=== PATIENT | female | born 1995 ===

== ENCOUNTER → 2020-10-29 11:53 | Outpatient (CLI) | payer OTHER, SELFPAY ==
[2020-10-29 12:45] LABS: Add Manual Diff / Slide Review NO; Basophils Absolute Auto 0 /uL (0-100); Basophils Percent Auto 0.3 % (0-2); Eosinophils Absolute Auto 200 /uL (0-450); Hematocrit 36.2 % (36-46); Hemoglobin 11.8 g/dL (12.0-16.0); Lymphocytes Absolute Auto 1700 /uL (1100-4500); Mean Corpuscular HGB Conc 32.6 % (30-36); Mean Corpuscular Hemoglobin 27.3 PG (26-34); Mean Corpuscular Volume 83.8 fL (80-100); Monocytes Absolute Auto 400 /uL (0-900); Neutrophils Absolute Auto 6500 /uL (1500-7000); Neutrophils Percent Auto 73.7 % (50-75); Platelet Count 223 X10^3/uL (150-400); Red Blood Cell Count 4.32 X10^6/uL (4.0-5.2); White Blood Cell Count 8.8 X10^3/uL (4.5-11.0)
[2020-10-29 13:27] LABS: Appearance Urine UA CLEAR; Bilirubin Urine UA NEGATIVE (NEGATIVE); Color Urine UA YELLOW; Glucose Urine UA NEGATIVE (Negative); Ketones Urine UA 1+ (NEGATIVE); Leukocyte Esterase Urine UA NEGATIVE (NEGATIVE); Nitrite Urine UA NEGATIVE (Negative); Occult Blood Urine UA TRACE-LYSED (Negative); Protein Urine UA NEGATIVE (Negative); Specific Gravity Urine UA >=1.030 (1.000-1.035); Urobilinogen Urine UA 0.2 E.U./dL (0.2)
[2020-10-29 13:35] LABS: Hepatitis B Surface Antigen NEGATIVE s/c (NEGATIVE)
[2020-10-29 13:36] LABS: Rubella Antibody IgG 22.3 IU/mL (>15)
[2020-10-29 13:55] LABS: HIV 1 & 2 Ab/Ag 4th Gen Combo NEGATIVE (NEGATIVE); Hep C Virus Ab w/Reflex Quant NEGATIVE s/c (NEGATIVE)
[2020-10-29 14:07] LABS: Urine N gonorrhoeae NOT DETECTED
[2020-10-29 14:30] LABS: Urine Chlamydia NOT DETECTED
[2020-10-30 06:02] LABS: RPR Screen Non Reactive (Non Reactive)
[2020-10-30 15:03] LABS: Varicella IgG Antibody 647 index (Immune >165)
== END ==
PROVIDERS: Obstetrics & Gynecology; PCP Internal Medicine; Referring Provider Obstetrics & Gynecology; Visit Provider Obstetrics & Gynecology
DX: Z34.81 Encounter for supervision of other normal pregnancy, first trimester (principal); Z11.3 Encounter for screening for infections with a predominantly sexual mode of transmission; Z3A.09 9 weeks gestation of pregnancy
CPT/HCPCS: 36415; 80055; 81003; 86787; 86803; 86850; 86900; 86901; 87086; 87389; 87491; 87591

== ENCOUNTER → 2020-11-26 14:43 | Outpatient (CLI) | payer OTHER, SELFPAY ==
[2020-12-02 10:34] LABS: Sequential Screen 1st Trimeste SEE SEPARATE REPORTS
== END ==
PROVIDERS: PCP Internal Medicine; Referring Provider Obstetrics & Gynecology; Visit Provider Obstetrics & Gynecology
DX: Z34.81 Encounter for supervision of other normal pregnancy, first trimester (principal); Z36.0 Encounter for antenatal screening for chromosomal anomalies; Z3A.13 13 weeks gestation of pregnancy
CPT/HCPCS: 36415; 84163; 84702

== ENCOUNTER → 2020-12-27 08:18 | Outpatient (CLI) | payer OTHER, SELFPAY ==
[2020-12-30 10:30] LABS: Miscellaneous to LabCorp SEE SEPARATE REPORTS
== END ==
PROVIDERS: PCP Internal Medicine; Referring Provider Obstetrics & Gynecology; Visit Provider Obstetrics & Gynecology
DX: Z34.02 Encounter for supervision of normal first pregnancy, second trimester (principal); Z36.0 Encounter for antenatal screening for chromosomal anomalies; Z3A.18 18 weeks gestation of pregnancy
CPT/HCPCS: 36415; 82105; 82677; 86336

== ENCOUNTER → 2021-01-06 13:41 | Outpatient (CLI) | payer OTHER, SELFPAY ==
[2021-01-06 14:56] LABS: Alanine Aminotransferase 11 IU/L (<35); Albumin 3.8 g/dL (3.5-5.0); Alkaline Phosphatase 88 U/L (38-126); Aspartate Aminotransferase 19 IU/L (14-36); Blood Urea Nitrogen 6 mg/dL (7-17); Calcium 9.3 mg/dL (8.4-10.2); Carbon Dioxide 26 mmol/L (22-32); Chloride 104 mmol/L (98-107); Estimated Glomerular Filt Rate > 60.0 mL/min (>60); Glucose 74 mg/dL (70-100); HEMOLYSIS < 15 (0-50); Potassium 3.7 mmol/L (3.4-5.1); Sodium 138 mmol/L (137-145); Total Protein 7.8 g/dL (6.3-8.2); Uric Acid 2.8 mg/dL (2.5-6.2)
[2021-01-06 14:58] LABS: Creatinine Urine Random 97.7 mg/dL; Protein (Total) Urine Random 11 mg/dL (0-12); Protein Creatinine Ratio Urine 0.11 GRAM/24H
[2021-01-06 15:09] LABS: Bilirubin Total < 0.1 mg/dL (0.2-1.3)
[2021-01-06 16:56] LABS: Lactate Dehydrogenase 395 U/L (313-618)
== END ==
PROVIDERS: PCP Internal Medicine; Referring Provider Obstetrics & Gynecology; Visit Provider Obstetrics & Gynecology
DX: Z34.90 Encounter for supervision of normal pregnancy, unspecified, unspecified trimester (principal)
CPT/HCPCS: 36415; 80053; 82570; 83615; 84156; 84550

== ENCOUNTER → 2021-01-11 12:38 | Outpatient (CLI) | payer OTHER, SELFPAY ==
--- NOTE | 2021-01-11 12:39 | DI.US.S_ITS ---
PROCEDURE: US OB >= 14 WEEKS FETUS INDICATIONS: ANATOMY OUTSIDE/PRIOR DATING DATA: Unknown First dating scan (date and location): 10/29/2020 . Estimated date of delivery (ORLIN) from first dating scan: 05/24/2021 . TECHNIQUE: Real-time scanning was performed of the fetus, with image documentation and biometric measurements. Endovaginal scanning: No COMPARISON: [facility], , OB <= 14 WEEKS FETUS, 10/29/2020, 11:48. FINDINGS: General: A single living intrauterine gestation is present. Presentation: Variable. Placenta: Placental position is right posterior , without previa. Amniotic fluid index: 15.6 cm, normal range is 5-24 cm. heart rate: 141 beats per minute. Maternal cervical canal: 3.6 cm long. Normal lower limit is 2.5 cm. biometrics: Biparietal diameter: 20 weeks 6 days Head circumference: 20 weeks 5 days Abdominal circumference: 21 weeks 2 days Femur length: 20 weeks 6 days Estimated gestational age from initial scan: not applicable. Composite gestational age from present scan: 21 weeks Estimated weight and percentile: 21 weeks Measurement variability for biometric dating: +/- 7 days from 14 weeks to 15 weeks 6 days gestation, +/- 10 days from 16 weeks to 21 weeks 6 days gestation, +/- 2 weeks from 22 weeks to 27 weeks 6 days gestation, +/- 3 weeks for 28 weeks gestation or later. weight reference: 4500 g or EFW >90/95% is considered macrosomia or large for gestational age. EFW <10% is small for gestational age. EFW 5% or less is considered intra-uterine growth restriction. Anatomic survey: Neuro: Ventricles are non-dilated at less than 10 mm. Cisterna magna is normal at 3-11 mm. Cerebellum is normal in size and morphology. Nuchal skin fold: Normal at less than 6 mm between 14-21 weeks gestational age. Face: Nose and lips, facial profile are normal. Spine: No evidence for spina bifida. Heart: 4-chambered heart is present, with normal ventricular outflow tracts. Diaphragm: Diaphragm is intact. Stomach: Left-sided stomach is present. Kidneys: No hydronephrosis. Normal is less than 5 mm in 2nd trimester, less than 7 mm in 3rd trimester. Cord: 3-vessel cord has orthotopic insertion. Bladder: Normal in size. Extremities: All 4 extremities identified. IMPRESSION: 1. Single living IUP redemonstrated and interval growth is normal. 2. Normal anatomic survey. Dictated by: Zeus Donohue [facility] Interpreted: Boyd Castellon MD on 01/11/2021 at 16:21 Transcribed by: TORRI on 01/11/2021 at 16:23 Approved by: Boyd Castellon M.D. on 01/13/2021 at 16:32
== END ==
PROVIDERS: PCP Internal Medicine; Referring Provider Obstetrics & Gynecology; Visit Provider Obstetrics & Gynecology
DX: Z34.82 Encounter for supervision of other normal pregnancy, second trimester (principal); Z3A.21 21 weeks gestation of pregnancy
CPT/HCPCS: 76811

== ENCOUNTER → 2021-02-26 08:07 | Outpatient (CLI) | payer OTHER, SELFPAY ==
[2021-02-26 09:26] LABS: Hematocrit 30.7 % (36-46); Hemoglobin 9.9 g/dL (12.0-16.0)
[2021-02-26 09:37] LABS: GTT (PREG) 1 Hour PP 50gm Dose 121 mg/dL (76-139)
== END ==
PROVIDERS: PCP Internal Medicine; Referring Provider Obstetrics & Gynecology; Visit Provider Obstetrics & Gynecology
DX: Z34.82 Encounter for supervision of other normal pregnancy, second trimester (principal); Z3A.25 25 weeks gestation of pregnancy
CPT/HCPCS: 36415; 82950; 85014; 85018

== ENCOUNTER 2021-04-13 17:22 | Observation (INO) | payer OTHER, SELFPAY ==
[2021-04-13] MEDS: NIFEdipine 10 MG CAPSULE PO ×4 (18:31→19:51)
== END 2021-04-13 20:16 | disposition home or self-care (01) ==
PROVIDERS: Admitting Provider Obstetrics & Gynecology; PCP Internal Medicine; Referring Provider Obstetrics & Gynecology; Visit Provider Obstetrics & Gynecology
DX: O47.03 False labor before 37 completed weeks of gestation, third trimester (principal); Z3A.33 33 weeks gestation of pregnancy
CPT/HCPCS: 59025; 59050; G0378; G0379

== ENCOUNTER → 2021-05-05 08:26 | Outpatient (CLI) | payer OTHER, SELFPAY ==
[2021-05-06 17:06] LABS: Strep Grp B PCR NEG for Grp B Strep
== END ==
PROVIDERS: PCP Internal Medicine; Visit Provider Obstetrics & Gynecology
DX: Z34.03 Encounter for supervision of normal first pregnancy, third trimester (principal); Z3A.36 36 weeks gestation of pregnancy
CPT/HCPCS: 87653

== ENCOUNTER 2021-05-21 11:04 | Inpatient (IN) | payer OTHER, SELFPAY ==
[2021-05-21] MEDS: LACTATED RINGERS 1,000 ML 100 ML IV (11:30)
--- NOTE | 2021-05-21 11:40 | P.HPOB_ITS ---
OB HPI Date/Time Date of admission: 05/21/21 Date Patient Seen: 05/21/21 Time Patient Seen: 11:41 History of Present Condition Chief complaint: : 5 Para: 3 Estimated Date of Delivery: 05/30/21 Estimated Gestational Age (weeks): 38w 5d Narrative: Leia Alejandra is a 25 year old at 38 weeks and 5 days gestation in active labor. Contractions began at approximately 4:00 a.m. today and picked up in intensity at about 8:00 a.m.. Denies leaking or bleeding and reports good movement. has been uncomplicated. Desires natural childbirth. OB history Del. Date GA/Weeks Labor Lgth Wt Sex Route Outcome Anesthesia Place Delv Breastfeed Preg Comp Name 04/20/13 9 ? spontaneous aborti on ? 01/15/15 40.5 8 8 lb 0.1 oz Male vaginal live - full term epidural [facility]. 2 mos-plugged duct. other Anand 01/20/16 40 4 7 lb 6 oz Female vaginal andres e - full term none [facility]. 3 mos., went well/back to work none Danni 03/07/19 39 6 8 lb 1 oz Male vaginal live - full term none [facility] 6 mos. induced hyper- Matthais History of Present care: good care, initiated at week # (9), number of visits (10) and pounds weight gain (20) Dating criteria: LMP confirmed by 1st trimester US Ultrasounds: normal mid trimester US Obstetrical complications: none Medical complications: none Preadmission Labs Blood type: B (+) positive -: Antibody screen: negative, GBS status: negative, HBsAG: negative, HIV: negative and RPR/VDLR: negative -: Chlamydia screen: not detected and Gonorrhea screen: not detected -: Rubella: immune and Varicella: immune HCT: 29 HCAB: negative Integrated screen: Normal Sequential screen: Normal Urine: Negative 1 hr GTT: 121 Evaluation Evaluation Baseline heart rate: 140 Variability: Moderate (11-25) monitor accelerations: Present Monitor Decelerations: Early Contraction Frequency (minutes): 5 Status: Category l Cervical dilation (cm): 5 Cervical effacement (%): 80 station: -1 [facility] Medical History Eczema (~2004) History of gestational hypertension Mild asthma (~2010) Sinus infection (~2016) Wears prescription eyeglasses Surgical History History of appendectomy (~2001) Family History Mother Diabetes mellitus Father No problems noted. Grandmother Alzheimers disease Grandfather No problems noted. 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 ) current occupational exposures/hazards: No kunal/yarsani: [employer] special kunal needs: No seatbelt use: always do you feel safe at home: Yes Smoking Status: Never smoker second hand exposure: No alcohol intake: former (Pre-: very occasional. ) substance use type: does not use during the past year weight has: remained stable well-balanced diet: daily or most days (Nibbles/snacks a lot - big meals don't agree with you. ) daily servings fruits/ve-4 caffeine: No Type(s) of exercise: walking and normal ROM and activity (3 kids at home. [facility] frequency: daily Meds Home Medications and Allergies Home Medications Medication Instructions Recorded Confirmed Type cholecalciferol (vitamin D3) 125 125 mcg PO DAILY 10/28/20 04/21/21 History mcg (5,000 unit) capsule prenat.vits,wilfredo,jrt-[id number]-kontg 1 tab PO DAILY 10/28/20 04/21/21 History Double electric breast pump 1 ea TOPICAL .prn #1 ea 03/21/21 04/21/21 Rx Allergies Allergy/AdvReac Type Severity Reaction Status Date / Time pollen extracts Allergy Intermediate Red, itchy Verified 04/21/21 08:06 eyes, congestion. soap AdvReac Intermediate Excema Verified 04/21/21 08:06 breakouts. Review of Systems Review of Systems ROS: Yes All systems reviewed with the patient and are negative except as otherwise documented Exam Vital Signs (past 8 hours): Temperature 36.7? blood pressure 118/68 heart rate 83 Const General: healthy appearing (Uncomfortable with contractions but coping well) HENMT Head: normal to inspection Ears: hearing grossly normal bilaterally Nose: external nose normal Face and sinus: normal facial exam Eyes General: appearance normal, both eyes and all related structures Neck Neck: normal visual inspection Resp Effort & Inspection: normal respiratory effort Auscultation: clear to auscultation bilaterally Cardio Rate: regular rate Rhythm: regular rhythm Heart Sounds: no murmurs GI Other: Gravid External Female Exam: normal external appearance Manual OB Exam: dilated 5, effaced (80) and station -1 Presentation: vertex Estimated Weight (lbs): 8 Back/Spine/Pelvis Back: normal to inspection Skin General: no rashes or lesions noted Extrem General: normal to inspection and no pedal edema Objective Labs Result Diagrams: 05/21/21 11:25 Assessment and Plan Assessment and Plan Assessment and Plan narrative: 25-year-old at 38 weeks and 5 days in active labor. GBS negative. Desires natural childbirth. Admission labs and COVID sc reen pending. Anticipate vaginal delivery.
[2021-05-21 12:02] LABS: Add Manual Diff / Slide Review NO; Basophils Absolute Auto 0 /uL (0-100); Basophils Percent Auto 0.4 % (0-2); Eosinophils Absolute Auto 100 /uL (0-450); Eosinophils Percent Auto 0.8 % (2-4); Lymphocytes Absolute Auto 1400 /uL (1100-4500); Lymphocytes Percent Auto 14.7 % (25-40); Mean Corpuscular HGB Conc 31.2 % (30-36); Mean Corpuscular Hemoglobin 21.9 PG (26-34); Mean Corpuscular Volume 70.3 fL (80-100); Monocytes Absolute Auto 500 /uL (0-900); Monocytes Percent Auto 5.8 % (3-14); Neutrophils Absolute Auto 7300 /uL (1500-7000); Neutrophils Percent Auto 78.3 % (50-75); Platelet Count 186 X10^3/uL (150-400); Red Blood Cell Count 4.12 X10^6/uL (4.0-5.2); Red Cell Distribution Width 17.3 % (11.6-14.8); White Blood Cell Count 9.3 X10^3/uL (4.5-11.0)
[2021-05-21 13:06] LABS: COVID19 - ADMIT (NP swab/PCR) Negative (Negative)
[2021-05-21] MEDS: OXYTOCIN PREMIX 30 UNIT/500 ML PLAST..BAG 150 UNIT IV (14:11)
[2021-05-21] MEDS: OXYTOCIN 10 UNIT/ML VIAL IM (14:12)
--- NOTE | 2021-05-21 14:19 | PM.OBPRVD ---
Labor & Delivery Delivery date: 05/21/21 Delivery augmentation: rupture of membranes Delivery monitor: external FHT Route of delivery: L&D Laceration Description: None Estimated blood loss (mL): 100 Anesthesia Type: None Narrative: Patient is a 25-year-old at 38 weeks and 5 days who presented in active labor. Regular contractions began at approximately 8 a.m.. She progressed well naturally through her labor. Artificial rupture membranes occurred shortly before delivery. She was complete and pushed over 1 contraction resulting in delivery of a healthy male at 2:07 p.m.. was vertex and WALLY. He was immediately placed on mother's abdomen. Cord was clamped and cut after 1 minute delay. Apgars were 9 and 9. No resuscitation of the required. Placenta delivered at 2:11 p.m. after active management and appeared intact a three-vessel cord. 20 units IM Pitocin given after delivery of placenta. Fundus was firm below umbilicus. EBL 100. There were no vaginal or perineal lacerations. Needle and sponge counts were correct. The vagina was inspected and no items were left in situ. Patient was doing well with Devonte, her and at bedside. [place] Baby 1: Infant gender: Male Presentation: vertex Position: Right Occiput Anterior Placenta delivery description: Spontaneous Cord Vessel Description: 3 Vessels score (1 min): 9 score (5 min): 9 Plan for aftercare: Routine care
[2021-05-21] MEDS: IBUPROFEN 600 MG TABLET PO ×2 (17:26→23:33)
[2021-05-22] MEDS: ACETAMINOPHEN 325 MG TABLET 650 MG PO ×2 (00:55→08:35)
[2021-05-22 03:49] VITALS: BP 118/68
[2021-05-22] MEDS: IBUPROFEN 600 MG TABLET PO ×2 (05:38→14:54)
[2021-05-22 08:35] VITALS: TEMP 36.4
[2021-05-22] MEDS: DOCUSATE 100 MG CAPSULE PO (08:45)
[2021-05-22] MEDS: PRENATAL VIT,CALC/IRON/FOLIC 1 TABLET 1 TAB PO (08:45)
--- NOTE | 2021-05-22 09:25 | PM.OBDS.1 ---
Discharge Providers Provider Date of admission: 05/21/21 11:04 Discharge Date: 05/22/21 Primary care physician: Moira Carpio MD Consults: 05/22/21 14:19 Consult to Director Of Learning Routine Comment: Discharge provider: Vandana Garland DO Summary Hospital Course Date Patient Seen: 05/22/21 Time Patient Seen: 09:00 Diagnoses: 38 weeks of Spontaneous vaginal delivery Hospital Course: Patient is a 25-year-old G4 now P4 after uncomplicated spontaneous vaginal delivery on 05/21/21 at 38 weeks and 5 days gestation. Patient presented in active labor and went on to deliver a vigorous male infant. Labor was unmedicated. There were no lacerations. No complications in the . course has been uncomplicated as well. She is ambulating, voiding, passing flatus and tolerating a diet. Vaginal bleeding light. Pain controlled with ibuprofen and Tylenol only. Breast-feeding going well. Advised patient to call for fevers, severe pain or bleeding through more than a pad an hour. Will follow-up for a visit with Dr. Henderson. Peripartum Data Infant Delivery Method: Natural Vaginal Laceration Description: None complications: none 1: Gender: Male Disposition of : home Discharge Diagnosis (1) Spontaneous vaginal delivery: Status: Acute (2) 38 weeks gestation of : Status: Acute Status at Discharge Cognitive/behavioral status at discharge: at baseline, oriented Functional status at discharge: independent ambulation Overall status at discharge: patient is progressing back to baseline Time Spent with Patient Time attestation: Total time spent providing and/or coordinating discharge services: Time spent: Less than 30 minutes Objective Labs Result Diagrams: 05/21/21 11:25 Labs: Laboratory Results - last 24 hr 05/21/21 05/21/21 05/21/21 11:25 11:25 11:25 WBC 9.3 RBC 4.12 Hgb 9.0 L Hct 29.0 L MCV 70.3 L MCH 21.9 L MCHC 31.2 RDW 17.3 H Plt Count 186 Neut % (Auto) 78.3 H Lymph % (Auto) 14.7 L [place] % (Auto) 5.8 Eos % (Auto) 0.8 L Baso % (Auto) 0.4 Neut # (Auto) 7300 H Lymph # (Auto) 1400 [place] # (Auto) 500 Eos # (Auto) 100 Baso # (Auto) 0 SARS-CoV-2 (PCR) Negative Blood Type B Positive Antibody Screen Negative Exam Vital Signs (past 8 hours): - 05/22/21 03:49 Blood Pressure 118/68 Narrative Exam Narrative: General: Awake and alert, no acute distress. HEENT: NCAT, EOMI, moist oral mucosa CV: Regular rate and rhythm, no murmurs, rubs or gallops Lungs: CTAB, no wheezes, rales, or rhonchi Abdomen: Soft, nontender; bowel tones active; uterus firm 1 cm below umbilicus Extremities: Warm, no edema Discharge Plan Discharge Plan Patient Disposition: Home Discharge orders & Medications Prescriptions: New docusate sodium 100 mg Capsule 100 mg PO DAILY Qty: 30 RF: 0 ibuprofen 600 mg Tablet 600 mg PO Q6HR PRN (Reason: Pain, Mild (1-3)) Qty: 30 RF: 0 Continued prenat.vits,wilfredo,mcc-obks-jqeyv Tablet 1 tab PO DAILY RF: 0 cholecalciferol (vitamin D3) 125 mcg (5,000 unit) capsule 125 mcg PO DAILY RF: 0 Double electric breast pump 1 ea topical .prn Qty: 1 RF: 0 Follow up/Referrals: Moira Carpio MD [Primary Care Provider] - Bayron Henderson MD [Physician] - 6 Weeks Visit Report/Discharge Packet Visit Report Forms: Patient Portal/API, Stroke Signs & Symptoms Discharge Data Primary Care Provider: Moira Carpio
[2021-05-22 09:58] VITALS: BP 120/69; PULSE 79; RESP 17; TEMP 36.4
[2021-05-22 10:05] VITALS: BP 120/69; PULSE 79; RESP 17; TEMP 36.4
== END 2021-05-22 15:05 | disposition home or self-care (01) | DRG 807 ==
PROVIDERS: Admitting Provider Family Medicine; PCP Internal Medicine; Referring Provider Family Medicine; Visit Provider Family Medicine
DX: O80 Encounter for full-term uncomplicated delivery (principal); Z37.0 Single live birth; Z20.822 Contact with and (suspected) exposure to COVID-19; Z3A.38 38 weeks gestation of pregnancy
CPT/HCPCS: 36415; 59050; 59400; 59409; 85025; 86850; 86900; 86901; 87635; C9803; G0379; J2590

== ENCOUNTER → 2021-09-29 15:32 | Outpatient (CLI) | payer OTHER, SELFPAY ==
[2021-09-29 17:02] LABS: COVID19 -Nasal RAPID Negative (Negative)
== END ==
PROVIDERS: PCP Internal Medicine; Visit Provider Obstetrics & Gynecology
DX: Z01.812 Encounter for preprocedural laboratory examination (principal); Z20.822 Contact with and (suspected) exposure to COVID-19
CPT/HCPCS: 87635

== ENCOUNTER 2021-09-30 09:58 | Day surgery (SDC) | payer OTHER, SELFPAY ==
[2021-09-30] VITALS (7 sets, daily range): BP systolic 101–119; BP diastolic 65–71; PULSE 60–82; RESP 12–15; TEMP 36.2–36.8; O2SAT 95–100; BMI 27.3
--- NOTE | 2021-09-30 | PATH_ITS ---
[facility] Accession Number: [id number] . 01 Material submitted: . fallopian tube - BILATERAL FALLOPIAN TUBE . 02 Diagnosis: Bilateral Fallopian Tubes: Complete cross-sections of portions of fallopian tube x2; negative for atypia or malignancy. MRV 10/05/2021 1008 Local . 02 Electronically signed: . Jennifer Jean MD, Pathologist NPI- [id number] . 01 Gross description: . The specimen is received in formalin, labeled with the patient's name and bilateral fallopian tubes, is composed of two intact fimbriated fallopian tubes which measure 5.0 cm and 4.0 cm in length. The diameter ranges from 0.4 to 0.3 cm. The serosal surface is brannon-mclain to brannon-brown and smooth. The fimbriae are dark brown and unremarkable. Sectioning reveals pinpoint stellate lumen. Sections are submitted as follows: . A1. Longer fallopian tube. A2: Jennings fallopian tube. ([id number]) /MRV 10/03/2021 1525 Local . 02 Pathologist provided ICD-10: Z30.2 . 02 CPT . 947127 Specimen Comment: A courtesy copy of this report has been sent to [facility] Pathology Performed at: 01 [facility] Cytology [address], [place], [place] [id number] MD David Muniz MD Phone: [phone] Performed at: 02 [facility] [address] [place], [place] [id number] MD Meredith Boyer MD Phone: [phone]
[2021-09-30] MEDS: LACTATED RINGERS 1,000 ML 42 ML IV ×2 (10:43→13:46)
[2021-09-30] MEDS: GABAPENTIN 300 MG CAPSULE PO (10:45)
[2021-09-30] MEDS: ACETAMINOPHEN 325 MG TABLET 975 MG PO (10:45)
--- NOTE | 2021-09-30 12:34 | PM.PREOP ---
Pre-operative Note COVID-19 COVID-19 status: Negative Result date/Date tested (Pos, Neg/Pending): 09/29/21 Criteria for continued procedure: Non-surgical alternatives not available or appropriate per current SOC Interval Note History & Physical reviewed/Exam performed by Physician: Yes Changes to H&P: No
--- NOTE | 2021-09-30 13:20 | SUR.OPER ---
Lithotomy on padded OR bed, head on pillow, both arms padded with gel pads and tucked. Legs secured in padded yellow fins stirrups.
[2021-09-30] MEDS: BUPIVACAINE 0.5% (PF) 30 ML, EPINEPHrine 0.15 MG INJ (13:28)
--- NOTE | 2021-09-30 13:53 | P.OP_ITS ---
Operative Date/Time/Diagnoses Date of procedure: 09/30/21 Time of procedure: 13:15 Pre-op diagnosis: Request for sterilization Post-op diagnosis: same Procedure & Clinicians Procedure: Procedures Operation Date: 09/30/21 11:15 Actual Procedure Side Surgeon p Laparoscopic Salpingectomy Bilateral Bayron Henderson MD Indications: Leia is a 26-year-old A1, who is currently following her most recent delivery 05/21/2021 who presents today for preoperative evaluation, counseling, and consent prior to elective sterilization via laparoscopic bilateral salpingectomy scheduled for 09/30/2021. She presents today for her scheduled surgery. Surgeon: Bayron Henderson Anesthesia Type: General Operative Notes Findings: Normal pelvic and peritoneal cavity as visualized laparoscopically. Closure Type: primary Specimen(s): portion of left tube and portion of right tube Estimated blood loss (mL): 10 Blood products transfused: none Procedure in detail: With the patient under satisfactory general anesthesia in the modified dorsal lithotomy position, the perineum vagina and abdomen prepped and draped in the usual fashion for hysteroscopy and laparoscopy.? A pre-surgical safety time-out was then taken in accordance with [facility] Main OR protocols.? The procedure was initiated with infiltration of the umbilicus with 0.5% Marcaine with epinephrine and a 5 mm incision on the lower edge of the umbilicus.? A Ve ress needle was then used to insufflate the abdomen with carbon dioxide and once insufflated, a 5 mm trocar and sleeve were placed through the umbilical incision.? The presence of the laparoscopic sleeve in the abdominal cavity was confirmed with the laparoscoped and a 2nd and 3rd 5 mm port was placed in the left and right mid quadrants using a similar technique.? With a 3 puncture technique, the pelvis and abdomen were visualized with the findings as noted previously.? The distal right fallopian tube was then grasped and elevated so that the fimbria of Latesha could be coagulated and divided with the PK device.? Coagulation and division of the mesosalpinx was then carried out to the level the cornua which was then coagulated and divided with complete excision of the fallopian tube on the right side.? The tube was then removed through 1 of the ports and attention turned to the left adnexa.? The left fallopian tube was elevated with a grasping forcep and the fimbrial vera cut coagulated and divided with the PK device.? The dissection was then carried across the mesosalpinx with each pedicle coagulated and divided with the PK.? Once the cornua was reached the base of the fallopian tube was then coagulated and divided with the PK.? The left fallopian tube was then removed from the abdominal cavity with a grasping forcep.? Attention was then turned to the areas of superficial endometriosis all of which were coagulated using bipolar current applied via the PK device.? Once all abnormalities have been addressed, the pneumoperitoneum was vented and the port incisions closed with 4-0 Monocryl using inverted interrupted stitches.? Skin glue was applied followed by appropriate dressings.?The patient was then awakens from anesthesia and transported to the PACU for a period of recovery having tolerated the procedure well. Complications: none Post-operative Condition: stable Disposition: PACU Plan for aftercare: Routine post-op care. Follow-up in-office will be in 2 weeks.
[2021-09-30] MEDS: OXYCODONE IR 5 MG TABLET PO (14:29)
== END 2021-09-30 14:53 | disposition home or self-care (01) ==
PROVIDERS: PCP Internal Medicine; Referring Provider Obstetrics & Gynecology; Visit Provider Obstetrics & Gynecology
PROC: 0UT74ZZ Resection of Bilateral Fallopian Tubes, Percutaneous Endoscopic Approach (ICD-10-PCS; CPT 58661; principal; 2021-09-30 11:15)
DX: Z30.2 Encounter for sterilization (principal); J45.998 Other asthma; Z86.16 Personal history of COVID-19
CPT/HCPCS: 58661; 81025; J0171; J0330; J1100; J1885; J2250; J2405; J2704; J3010